=== PATIENT | female | born 1945 | race Caucasian/White ===

== ENCOUNTER 2016-07-06 18:10 | Emergency (ER) | payer OTHER ==
[~2016-07-06] VITALS: Ht 165.1 cm; Wt 124.2 kg
[2016-07-06] MEDS ORDERED: ACETAMINOPHEN 325 MG TAB PO STA (18:40)
[2016-07-06] MEDS ORDERED: OPTIRAY 320 IV PRN (18:45)
[2016-07-06 19:11] VITALS: O2SAT 93
[2016-07-06 19:41] VITALS: Ht 165.1 cm; Wt 124.2 kg
[2016-07-06 19:43] LABS: BASO % 0.2 %; BASO ABS # 0.01 K/uL (0-0.2); COMPLETE YES; EOS % 0.5 %; HEMATOCRIT 41.7 % (37-47); LYMPH % 13.2 %; LYMPH ABS # 0.54 K/uL (1.2-3.4); MEAN CORPUSCULAR HEMOGLOBIN 30.3 pg (25-34); MEAN CORPUSCULAR HGB CONC 33.3 g/dl (32-36); MEAN PLATELET VOLUME 10.2 fL (7.4-10.4); MONO % 9.1 %; PLATELET COUNT 148 K/uL (130-400); RED BLOOD COUNT 4.58 M/uL (4.2-5.4); WHITE BLOOD COUNT 4.08 K/uL (4.8-10.8)
[2016-07-06 19:53] LABS: PARTIAL THROMBOPLASTIN RATIO 1.1; PROTHROMBIN TIME (PATIENT) 10.2 SECONDS (9.0-12.0)
[2016-07-06] MEDS ORDERED: ONDANSETRON INJ 2 MG/ML 2 ML VIAL IV STA (19:55)
[2016-07-06 20:01] LABS: ALT/SGPT 39 U/L (12-78); AST/SGOT 23 U/L (15-37); BLOOD UREA NITROGEN 16 mg/dl (7-18); BUN/CREATININE RATIO 18.4 (10-20); CALCIUM 8.6 mg/dl (8.5-10.1); CARBON DIOXIDE 30 mmol/L (21-32); CHLORIDE 109 mmol/L (98-107); CREATININE 0.89 mg/dl (0.60-1.20); GLUCOSE 178 mg/dl (70-99); SODIUM 144 mmol/L (136-145)
[2016-07-06 20:06] LABS: ALB/GLOB RATIO 1.1 (0.9-2); ALKALINE PHOSPHATASE 140 U/L (45-117)
--- NOTE | 2016-07-06 20:23 | DIAGNOSTIC IMAGING REPORT ---
CHEST 2 VIEWS ROUTINE CLINICAL HISTORY: eval for pnea pain COMPARISON STUDY: No previous studies for comparison. FINDINGS: External hernia. Minimal basilar atelectatic change. Mid and upper lungs are clear. IMPRESSION: Hiatal hernia. Mild bibasilar atelectasis. Otherwise negative study. Electronically signed by: Reji Pretty M.D. 07/06/2016 8:21 PM Dictated Date/Time: 07/06/2016 8:21 PM
[2016-07-06] MEDS ORDERED: CHOL100027 PO (20:26)
[2016-07-06] MEDS ORDERED: MOME1AER5 INH (20:26)
[2016-07-06] MEDS ORDERED: ATOR-26 PO (20:26)
[2016-07-06] MEDS ORDERED: CLOP1TAB15 PO (20:26)
[2016-07-06] MEDS ORDERED: OXGN (20:26)
[2016-07-06] MEDS ORDERED: LOSA1TAB PO (20:26)
[2016-07-06] MEDS ORDERED: NXM/40 PO (20:26)
[2016-07-06] MEDS ORDERED: CITA40TA12 PO (20:26)
[2016-07-06] MEDS ORDERED: METO25TA56 PO (20:26)
[2016-07-06] MEDS ORDERED: POTA10CA28 PO (20:26)
[2016-07-06] MEDS ORDERED: FLUCINONIDE TOP (20:26)
[2016-07-06] MEDS ORDERED: NTRSL3 UT (20:26)
[2016-07-06] MEDS ORDERED: HALO0.0510 PO (20:26)
[2016-07-06] MEDS ORDERED: EPP3/2 IM (20:26)
[2016-07-06] MEDS ORDERED: INSDGI SC (20:26)
[2016-07-06] MEDS ORDERED: ALBINS/ INH (20:26)
[2016-07-06] MEDS ORDERED: BUDE180I INH (20:26)
[2016-07-06] MEDS ORDERED: NVLG SQ (20:26)
[2016-07-06] MEDS ORDERED: ATOR-24 PO ×2 (20:26)
--- NOTE | 2016-07-06 21:23 | DIAGNOSTIC IMAGING REPORT ---
BILATERAL LOWER EXTREMITY VENOUS DOPPLER HISTORY: Pain. Edema. eval for dv COMPARISON STUDY: None. FINDINGS: There is normal compressibility, flow, and augmentation within the bilateral lower extremity deep venous systems. IMPRESSION: No DVT within the right or left lower extremity. Electronically signed by: Reji Pretty M.D. 07/06/2016 9:21 PM Dictated Date/Time: 07/06/2016 9:21 PM
[2016-07-06] MEDS ORDERED: ALBUT/IPRATROP 3MG/0.5MG NEB 3 ML VIAL INH STA ×2 (21:48→22:33)
[2016-07-06 22:58] VITALS: TEMP 37.9
[2016-07-06] MEDS ORDERED: OSELTAMIVIR PHOSPHATE 75 MG CAP PO STA (23:46)
[2016-07-07] MEDS ORDERED: NF406 PO (00:16)
[2016-07-07] MEDS ORDERED: PRED20TA PO (00:21)
[2016-07-07 00:25] VITALS: BP 146/88; PULSE 99; O2SAT 92
--- NOTE | 2016-07-07 01:54 | EMERGENCY ROOM VISIT NOTE ---
History Report prepared by Red: Cipriano Mcpherson Under the Supervision of: Dr. Francisco Javier Golden M.D. First contact with patient: 18:29 Chief Complaint: RESPIRATORY PROBLEMS Stated Complaint: RESP PROBLEMS History of Present Illness The patient is a 71 year old female who presents to the Emergency Room with complaints of shortness of breath starting yesterday. Yesterday, she started having a cough with thick, whitish phlegm production. Yesterday, she also started having chest tightness across her chest which was similar to her past episode of COPD exacerbation. She is on oxygen at home. She is unsure about any fevers. She had chills today. She also complains of a cramping pain in bilateral calves starting last week . She denies any lower extremity swelling. She flew back to [place] from [facility] 4 days ago. She experienced some turbulence during the flight and was unable to ambulate much during the plane ride. She has a history of diabetes and cardiac stent. She also has a history of myocardial infarction but denies any similar symptoms today. She also has 11 nodules in lungs with one that is starting to grow. She denies any history of smoking cigarettes. She denies nausea, vomiting, or any other complaints. She did not receive her flu shot this year. Source of History: patient Onset: yesterday Position: other (global) Quality: other (shortness of breath) Modifying Factors (Relieving): other (none) Associated Symptoms: + chills, + cough, No nausea, No vomiting Review of Systems See HPI for pertinent positives & negatives. A total of 10 systems reviewed and were otherwise negative. Past Medical & Surgical Medical Problems: (1) Diabetes (2) Lung nodules (3) Myocardial infarction Family History Patient reports no known family medical history. Social History Smoking Status: Never Smoker Marital Status: Occupation Status: retired Current/Historical Medications Scheduled Atorvastatin (Lipitor), 80 MG PO QPM Atorvastatin (Lipitor), 40 MG PO QPM Atorvastatin (Lipitor), 40 MG PO DAILYQP Budesonide (Inhalation) (Pulmicort Flexhaler), 2 PUFFS INH BID Cholecalciferol (Vitamin D 1000 Unit), 1,000 INTER.UNIT PO DAILY Citalopram Hydrobromide (Celexa), 20 MG PO DAILY Clopidogrel (Plavix), 75 MG PO DAILY Epinephrine (Epipen), 0.3 MG IM UD Esomeprazole Magnesium (Nexium), 40 MG PO QAM Halobetasol Propionate (Halobetasol Propionate), 1 APPLN PO DAILY Insulin Aspart (Novolog), 5 UNITS SQ ACHS Insulin Glargine (Lantus), 35 UNITS SC AMPM Losartan Potassium (Cozaar), 12.5 MG PO DAILY Metoprolol Tartrate (Lopressor) (Lopressor), 25 MG PO Q12 Mometasone Furoate (Inhalation (Asmanex Hfa), 2 PUFF INH AMPM Nitroglycerin (Nitrostat), 0.3 MG UT PRN Oseltamivir Phosphate (Tamiflu), 1 CAP PO BID Potassium Chloride (Micro-K Ext Rel), 10 MEQ PO DAILY Prednisone (Prednisone), 3 TAB PO DAILY [Flucinonide], 1 APPLN TOP QAM Scheduled PRN Albuterol Sulf (Proventil 0.083% 2.5MG/3ML), 2.5 MG INH Q4 PRN for SOB/Wheezing Miscellaneous Medications Oxygen (Oxygen), 2 LITERS NA Allergies Coded Allergies: Aspirin (Verified Allergy, Severe, ANAPHYLAXIS, 07/06/16) Cortisone (Verified Allergy, Severe, RASH, 07/06/16) Latex2 -Systemic Allergic Response (Verified Allergy, Severe, ANAPHYLAXIS , 07/06/16) [place] (Verified Allergy, Severe, ANAPHYLAXIS, 07/06/16) Penicillins (Verified Allergy, Severe, SKIN ON FINGERS PEEL, 07/06/16) Enalapril (Verified Adverse Reaction, Severe, COUGH, 07/06/16) Ezetimibe (Verified Adverse Reaction, Severe, NAUSEA, 07/06/16) Indomethacin (Verified Adverse Reaction, Severe, HYPOTENSION, 07/06/16) Metformin (Verified Adverse Reaction, Severe, GI SYMPTOMS, 07/06/16) Uncoded Allergies: MEDICAL DYES (Allergy, Severe, HIVES, 07/06/16) SECONAL SODIUM (Allergy, Severe, ANAPHYLAXIS, 07/06/16) Physical Exam Vital Signs Date Time Temp Pulse Resp B/P Pulse Ox O2 Delivery O2 Flow Rate FiO2 07/07/16 00:25 99 20 146/88 92 07/06/16 23:55 99 20 146/88 92 Room Air 5/22/17 23:39 91 07/06/16 23:03 106 07/06/16 22:58 37.9 106 20 130/64 92 Room Air 07/06/16 21:22 38.3 88 20 120/73 92 Room Air 07/06/16 19:42 39.5 99 26 120/90 92 Room Air 07/06/16 19:11 93 Room Air 07/06/16 19:00 94 07/06/16 18:22 39.2 97 26 127/62 91 Room Air Physical Exam Constitutional: Vital signs reviewed. Eyes: Pupils are equal round reactive to light. Conjunctiva are noninjected. ENT: Pharynx is clear without erythema or exudate. Mucous membranes are moist. Neck supple without meningeal signs. Respiratory: No wheezing. Rhonchi right upper lobe. Breath sounds are equal bilaterally. Cardiovascular: Regular rate and rhythm. No rubs or gallops. GI: Soft, nondistended and nontender. Bowel sounds are present. Musculoskeletal: No peripheral edema. No lower extremity tenderness. Integumentary: No cyanosis. Neurological: The patient is awake and alert. No focal deficits. Psychiatric: Normal affect. Medical Decision & Procedures ER Provider Diagnostic Interpretation: X-ray results as stated below per interpretation by me and the radiologist: CHEST 2 VIEWS ROUTINE CLINICAL HISTORY: eval for pnea pain COMPARISON STUDY: No previous studies for comparison. FINDINGS: External hernia. Minimal basilar atelectatic change. Mid and upper lungs are clear. IMPRESSION: Hiatal hernia. Mild bibasilar atelectasis. Otherwise negative study. Electronically signed by: Reji Pretty M.D. 07/06/2016 8:21 PM Dictated Date/Time: 07/06/2016 8:21 PM US results as stated below per my review and radiologist interpretation. BILATERAL LOWER EXTREMITY VENOUS DOPPLER HISTORY: Pain. Edema. eval for dv COMPARISON STUDY: None. FINDINGS: There is normal compressibility, flow, and augmentation within the bilateral lower extremity deep venous systems. IMPRESSION: No DVT within the right or left lower extremity. Electronically signed by: Reji Pretty M.D. 07/06/2016 9:21 PM Dictated Date/Time: 07/06/2016 9:21 PM Laboratory Results 07/06/16 19:20 Red Blood Count 4.58, Mean Corpuscular Volume 91.0, Mean Corpuscular Hemoglobin 30.3, Mean Corpuscular Hemoglobin Concent 33.3, Mean Platelet Volume 10.2, Neutrophils (%) (Auto) 77.0, Lymphocytes (%) (Auto) 13.2, Monocytes (%) (Auto) 9.1, Eosinophils (%) (Auto) 0.5, Basophils (%) (Auto) 0.2, Neutrophils # (Auto) 3.14, Lymphocytes # (Auto) 0.54, Monocytes # (Auto) 0.37, Eosinophils # (Auto) 0.02, Basophils # (Auto) 0.01 07/06/16 19:20 Test 07/06/16 19:20 07/06/16 19:30 07/06/16 22:05 07/06/16 22:40 White Blood Count 4.08 K/uL (4.8-10.8) Red Blood Count 4.58 M/uL (4.2-5.4) Hemoglobin 13.9 g/dL (12.0-16.0) Hematocrit 41.7 % (37-47) Mean Corpuscular Volume 91.0 fL (80-100) Mean Corpuscular Hemoglobin 30.3 pg (25-34) Mean Corpuscular Hemoglobin Concent 33.3 g/dl (32-36) Platelet Count 148 K/uL (130-400) Mean Platelet Volume 10.2 fL (7.4-10.4) Neutrophils (%) (Auto) 77.0 % Lymphocytes (%) (Auto) 13.2 % Monocytes (%) (Auto) 9.1 % Eosinophils (%) (Auto) 0.5 % Basophils (%) (Auto) 0.2 % Neutrophils # (Auto) 3.14 K/uL (1.4-6.5) Lymphocytes # (Auto) 0.54 K/uL (1.2-3.4) Monocytes # (Auto) 0.37 K/uL (0.11-0.59) Eosinophils # (Auto) 0.02 K/uL (0-0.5) Basophils # (Auto) 0.01 K/uL (0-0.2) RDW Standard Deviation 46.7 fL (36.4-46.3) RDW Coefficient of Variation 14.0 % (11.5-14.5) Immature Granulocyte % (Auto) 0.0 % Immature Granulocyte # (Auto) 0.00 K/uL (0.00-0.02) Prothrombin Time 10.2 SECONDS (9.0-12.0) Prothromb Time International Ratio 1.0 (0.9-1.1) Activated Partial Thromboplast Time 28.2 SECONDS (21.0-31.0) Partial Thromboplastin Ratio 1.1 Anion Gap 5.0 mmol/L (3-11) Est Creatinine Clear Calc Drug Dose 74.5 ml/min Estimated GFR () 74.5 Estimated GFR (Non- 64.3 BUN/Creatinine Ratio 18.4 (10-20) Calcium Level 8.6 mg/dl (8.5-10.1) Total Bilirubin 0.4 mg/dl (0.2-1) Aspartate Amino Transf (AST/SGOT) 23 U/L (15-37) Alanine Aminotransferase (ALT/SGPT) 39 U/L (12-78) Alkaline Phosphatase 140 U/L (45-117) Troponin I < 0.015 ng/ml (0-0.045) Total Protein 6.8 gm/dl (6.4-8.2) Albumin 3.5 gm/dl (3.4-5.0) Globulin 3.3 gm/dl (2.5-4.0) Albumin/Globulin Ratio 1.1 (0.9-2) Bedside Lactic Acid Venous 1.14 mmol/L (0.90-1.70) Bedside D-Dimer 446 ng/mlFEU (0-450) Bedside Troponin I 0.000 ng/ml (0-0.045) Influenza Type A Antigen Neg for Influ A (NEG) Influenza Type B Antigen POS for Influ B (NEG) Laboratory results as reviewed by me. Medications Administered Medications (Trade) Dose Ordered Sig/[facility] Route Start Time Stop Time Status Last Admin Dose Admin Acetaminophen (Tylenol Tab) 650 mg NOW STAT PO 07/06/16 18:40 07/06/16 18:42 DC 07/06/16 19:41 650 MG Ondansetron HCl (Zofran Inj) 4 mg NOW STAT IV 07/06/16 19:55 07/06/16 19:56 DC 07/06/16 19:58 4 MG Albuterol/ Ipratropium (Duoneb) 3 ml NOW STAT INH 07/06/16 21:48 07/06/16 21:50 DC 07/06/16 22:03 3 ML Prednisone (PredniSONE TAB) 60 mg NOW STAT PO 07/06/16 21:48 07/06/16 21:50 DC 07/06/16 22:03 60 MG Albuterol/ Ipratropium (Duoneb) 3 ml NOW STAT INH 07/06/16 22:33 07/06/16 22:34 DC 07/06/16 22:38 3 ML Oseltamivir Phosphate (Tamiflu Cap) 75 mg NOW STAT PO 07/06/16 23:46 07/06/16 23:47 DC 07/06/16 23:54 75 MG ECG Indication: SOB/dyspnea Rate (beats per minute): 91 Rhythm: normal sinus Findings: LBBB, Q waves (Inferior/septal) ED Course 1828: The patient was evaluated in room C10. A complete history and physical exam was performed. 1839: Tylenol Tab 650 mg PO 1945: I reevaluated the patient. She is agreeable to an ultrasound. 1954: Zofran Inj 4 mg IV 2146: The patient is wheezing bilaterally now. 2147: Prednisone 60 mg PO, DuoNeb 3 ml INH 2232: DuoNeb 3 ml INH. I reevaluated the patient and her wheezing has increased. Her O2 sat is 92%. She reports that she is feeling better. 2345: Tamiflu Cap 75 mg PO. I reevaluated the patient. I discussed tonight radiology findings and lab results. She is positive for Influenza B. Her O2 sats went into the high 80s when she fell asleep which is not unusual for her since she wears oxygen at night. She did an ambulatory trial and her O2 sats remained 81%. I offered hospitalization but she declined given that she wants to spend her vacation with her children. The patient was discharged home. 0020: I reevaluated the patient. She did not have a reaction to the Tamiflu and she still wants to go home. Medical Decision This is a 71-year-old female who presents with shortness of breath and fever. Differential diagnosis includes bronchitis, pneumonia, sepsis, pulmonary embolism, pleural effusion, COPD exacerbation. I did perform a limited focused review of portions of the patient's old chart on the electronic medical record. The patient has had no prior visits. I did evaluate the patient as noted above. The patient is presenting with shortness of breath and a productive cough. She also complains of chest tightness but states this is common for her when she gets a COPD exacerbation. She states that it feels nothing like her anginal symptoms. She is febrile here. On initial examination I didn't hear much wheezing. I was therefore concerned about possible pulmonary embolus. Unfortunately could not get a CT of the chest because the patient is allergic to IV dye. IV access was established. The patient was placed on a continuous compliance monitor. I did order and personally review the patient's 12-lead EKG and chest x-ray as described above. She has no pneumonia on chest x-ray. I did order and review the patient's blood work as noted in the electronic medical record. Troponin is negative 2. D-dimer was negative. I did order Doppler ultrasounds of the lower extremities. I did review the images myself as well as the radiology report as described above. There is no evidence of DVT. On reexamination the patient is wheezing bilaterally. I did therefore treated with prednisone which she stated she was not allergic to. She states she could not take Solu-Medrol. She was also given a DuoNeb. I did order a rapid flu test as well. On reexamination her wheezing has increased. I did treat her with another DuoNeb. Her rapid flu test came back positive for influenza B. I did reassess her. She feels much better. Her wheezing is mostly subsided at this point. She has an O2 saturation of 94%. We did ambulate her and her O2 saturation remained 91% . She did fall asleep during the ED visit and her O2 saturation dropped to the high 80s but she states that's normal for her and she wears oxygen at night. I did wish to hospitalize the patient because she did not have her nebulizers or oxygen with her and she has influenza B. She did not wish to stay as she is on vacation visiting her children and wanted to spend time with them. I was unable to convince her to stay. She does understand that her condition can worsen and she will return if she feels worse. Her children will keep a close eye on her as well. I did treat her with Tamiflu. She was discharged with a prescription for Tamiflu and prednisone. Impression Primary Impression: Influenza B Additional Impression: COPD exacerbation Scribe Attestation The scribe's documentation has been prepared under my direct and personally reviewed by me in its entirety. I confirm that the note above accurately reflects all work, treatment, procedures, and medical decision making performed by me. Departure Information Dispostion Home / Self-Care Prescriptions Prednisone (Prednisone) 20 Mg Tab 3 TAB PO DAILY, #15 TAB FOR 4 DAYS Prov: Francisco Javier Golden M.D. 07/07/16 Oseltamivir Phosphate (Tamiflu) 75 Mg Cap 1 CAP PO BID for 5 Days, #9 CAP Prov: Francisco Javier Golden M.D. 07/07/16 Referrals No Doctor Assigned Forms HOME CARE DOCUMENTATION FORM, IMPORTANT VISIT INFORMATION, WORK / SCHOOL INSTRUCTIONS Patient Instructions COPD Dc, ED Flu, My [facility] Additional Instructions You are declining hospitalization and by doing so risk worsening of your condition. You have been examined and treated today on an emergency basis only. This is not a substitute for, or an effort to provide, complete comprehensive medical care. It is impossible to recognize and treat all injuries or illnesses in a single emergency department visit. It is therefore important that you follow up closely with your physician. Call as soon as possible for an appointment. Return for worsening symptoms or if you develop chest pain, confusion, vomiting, or any other concerning symptoms. Problem Qualifiers
== END 2016-07-07 00:25 | disposition home or self-care (01) ==
LOC: C.EDB 18:12 → C.EDC 07-07 00:25
DX: J44.1 Chronic obstructive pulmonary disease with (acute) exacerbation (principal); J11.1 Influenza due to unidentified influenza virus with other respiratory manifestations; I44.7 Left bundle-branch block, unspecified; E11.9 Type 2 diabetes mellitus without complications; I25.2 Old myocardial infarction; Z79.4 Long term (current) use of insulin; Z79.899 Other long term (current) drug therapy; Z88.0 Allergy status to penicillin; Z88.1 Allergy status to other antibiotic agents; Z88.6 Allergy status to analgesic agent; Z88.8 Allergy status to other drugs, medicaments and biological substances